=== PATIENT | female | born 1965 | race Caucasian/White ===

== ENCOUNTER 2020-04-04 15:41 | Emergency (ER) | payer OTHER, SELFPAY ==
[2020-04-04 15:54] VITALS: BP 129/68; PULSE 88; RESP 16; TEMP 36.9; O2SAT 98
[2020-04-04] MEDS: TETANUS,DIPHTHERIA,AC PERTUSSIS ADULT (0.5 ML) BOOSTRIX IM (16:25)
--- NOTE | 2020-04-04 17:03 | ED.GENADULT ---
HPI - General Adult General Chief complaint: Wound/Laceration Stated complaint: Laceration on hand Source: patient Mode of arrival: ambulatory Limitations: no limitations History of Present Illness HPI narrative: Patient presents for evaluation of laceration to left hand. She indicates she had a knife that was attempting to open a wrapper just prior to arrival when she cut herself. She was able to get bleeding controlled with application of pressure dressing. She is right-hand dominant. Denies loss of range of motion in the affected hand. Denies paresthesias. Date of last tetanus unknown. She is not diabetic. No additional complaints or concerns. Related Data Home Medications Medication Instructions Recorded Confirmed bupropion HCl mg PO 04/04/20 Allergies Allergy/AdvReac Type Severity Reaction Status Date / Time levofloxacin AdvReac Intermediate Other Verified 10/26/17 17:47 Sulfa (Sulfonamide AdvReac Other Verified 04/04/20 16:34 Antibiotics) Review of Systems Review of Systems: Narrative: CONSTITUTIONAL: Denies fever, chills, or sweats. EYES: Denies visual changes, redness, or discharge. ENT: Denies rhinorrhea, congestion, sore throat, or otalgia. CARDIOVASCULAR: Denies chest pain, palpitations, or edema. RESPIRATORY: Denies cough or dyspnea. GASTROINTESTINAL: Denies abdominal pain, nausea, vomiting, or diarrhea. GENITOURINARY: Denies dysuria or hematuria. SKIN: Denies rash or itching. reports laceration to left hand MUSCULOSKELETAL: Denies back pain, joint pain. Reports pain in left hand between 1st and 2nd digits NEUROLOGIC: Denies headache, numbness, dizziness, or weakness. PSYCHIATRIC: Denies anxiety or depression. [facility] Past Medical History Medical History (Updated 04/04/20 @ 17:53 by CONSUELO Shaver, TOSHIA) No pertinent past medical history Surgical History Surgical History (Updated 04/04/20 @ 17:05 by CONSUELO Shaver, TOSHIA) No pertinent past surgical history Family History Family History Mother No pertinent family history Social History Social History Smoking status: Current every day smoker Additional smoking assessment comments: 1 ppd Alcohol use details: Does not currently consume ETOH Substance use: never Living arrangements: other Additional living arrangements comments: with fiance Occupation/Education: occupation Gender identity (if verbalized by the patient): Female Sexual Orientation (if Verbalized by the Patient): Straight or Heterosexual Exam Narrative: Exam Narrative: GENERAL: Well-appearing, well-nourished, and in no acute distress. HEAD: Normocephalic, atraumatic. EYES: PERRLA and EOMI. ENT: Nares clear, no rhinorrhea or epistaxis. Mucous membranes moist. Oropharynx without tonsillar hypertrophy exudate or other lesions. Bilateral TMs pearly acuna nonbulging NECK: Supple. No adenopathy or masses. No carotid bruits or JVD CHEST: Clear to auscultation. No respiratory distress. No wheezes rales or rhonchi HEART: Regular rate and rhythm. No murmur heard. Normal peripheral pulses. ABDOMEN: Soft, nontender, nondistended, normal active bowel sounds. EXTREMITIES: Normal range of motion. No edema. SKIN: Approximately 1.5 cm linear laceration to left hand between 1st and 2nd digits at thenar space, covered with dry gauze which was removed for examination. Bleeding is controlled. NEURO: No focal deficits. Alert and oriented x3. PSYCH: Normal mood and affect. Course Course Emergency Course: Patient presents with laceration to the thenar space of the left hand. She was updated on her tetanus and laceration was repaired with 2 sutures, patient tolerated well. Pt was instructed to follow up with primary care and return for any signs of infection. Vital Signs Vital signs: Vital Signs Temperature 36.9 C 04/04/20 15:5
== END 2020-04-04 17:55 | disposition home or self-care (01) ==
PROVIDERS: Emergency Provider Nurse Practitioner
DX: S61.412A Laceration without foreign body of left hand, initial encounter (principal); W26.0XXA Contact with knife, initial encounter; Z23 Encounter for immunization; F17.200 Nicotine dependence, unspecified, uncomplicated
CPT/HCPCS: 12001; 90471; 90715; 99212; G0463

== ENCOUNTER 2020-04-13 18:03 | Emergency (ER) | payer OTHER, SELFPAY ==
[2020-04-13 18:10] VITALS: BP 125/65; PULSE 96; RESP 16; TEMP 37.1; O2SAT 98
--- NOTE | 2020-04-13 18:28 | ED.SKABFB ---
HPI - Skin/Abscess/Foreign Bdy General Chief complaint: Skin/Abscess/Foreign Body Stated complaint: stitches removed from left hand Time Seen by Provider: 04/13/20 18:19 Source: patient and RN notes reviewed Mode of arrival: ambulatory Limitations: no limitations History of Present Illness HPI narrative: 54-year-old female presents with concern for suture removal. Reports 2 sutures in her which left hand that she received after sustaining a laceration 9 days ago. Reports a small amount of redness and irritation at the suture site. Denies any other symptoms. MD complaint: laceration Related Data Home Medications Medication Instructions Recorded Confirmed bupropion HCl 150 mg PO DAILY 04/04/20 Allergies Allergy/AdvReac Type Severity Reaction Status Date / Time levofloxacin AdvReac Intermediate Other Verified 04/13/20 18:18 Sulfa (Sulfonamide AdvReac Other Verified 04/13/20 18:18 Antibiotics) Review of Systems Review of Systems: Narrative: CONSTITUTIONAL: Denies malaise, chills, sweats, or fever. SKIN: Reports 2 sutures to the left hand with a small amount of redness. Denies any drainage. Denies any swelling MUSCULOSKELETAL: Denies musculoskeletal pain NEUROLOGIC: Denies numbness, weakness All systems reviewed & are unremarkable except as noted in HPI and below PMFSH Past Medical History Medical History (Updated 04/13/20 @ 18:27 by Jina Live NP) No pertinent past medical history Surgical History Surgical History (System 04/06/20 @ 12:12 by Melissa Mccartney) No pertinent past surgical history Family History Family History Mother No pertinent family history Social History Social History (System 04/06/20 @ 12:12 by Melissa Mccartney) Smoking status: Current every day smoker Additional smoking assessment comments: 1 ppd Substance use: never Additional living arrangements comments: with fiance Gender identity (if verbalized by the patient): Female Comments At time of signature, agree with nursing past medical, surgical, social and family history. There is no relevant family history pertinent to the presenting complaint Exam Narrative: Exam Narrative: GENERAL: Well-appearing, well-nourished, and in no acute distress. HEAD: Normocephalic EYES: PERRLA, conjunctivae clear ENT: Mucous membranes moist. NECK: Supple. CHEST: No respiratory distress. Speaks in full sentences. HEART: Regular rate and rhythm. es. EXTREMITIES: Left hand digits have grossly normal range of motion, no edema, normal strength and sensation. SKIN: Warm, dry, no rash. 2 intact sutures between the first and second digits of the left hand, laceration closed well approximated, with very small amount of surrounding erythema, without induration, edema, drainage. NEURO: Alert and oriented x3. PSYCH: Normal mood and affect Course Course Emergency Course: Patient is aware of diagnosis, understands and agrees to treatment plan. Anticipatory guidance given. Patient agrees to follow-up as directed and is aware of reasons to seek care at the emergency department. Portions of this record may have been created with voice recognition software Vital Signs Vital signs: Vital Signs Temperature 98.8 F 04/13/20 18:10 Pulse Rate 96 04/13/20 18:10 Respiratory Rate 16 04/13/20 18:10 Blood Pressure 125/65 04/13/20 18:10 Pulse Oximetry 98 04/13/20 18:10 Temperature 98.8 F 04/13/20 18:10 Pulse Rate 96 04/13/20 18:10 Respiratory Rate 16 04/13/20 18:10 Blood Pressure 125/65 04/13/20 18:10 Pulse Oximetry 98 04/13/20 18:10 Reviewed. MDM - Skin/Abscess/Foreign Bdy MDM Narrative Medical decision making narrative: Verbal consent was obtained. Wound well approximated, no erythema, induration, or discharge noted. 2 intact completely removed in a sterile fashion. Patient tolerated procedure well, no complications. Patient advised to
== END 2020-04-13 18:30 | disposition home or self-care (01) ==
PROVIDERS: Emergency Provider Nurse Practitioner; PCP Family Medicine
DX: S61.412D Laceration without foreign body of left hand, subsequent encounter (principal); X58.XXXD Exposure to other specified factors, subsequent encounter; F17.200 Nicotine dependence, unspecified, uncomplicated
CPT/HCPCS: 99211; G0463

== ENCOUNTER 2023-05-08 18:04 | Emergency (ER) | payer BC, SELFPAY ==
--- NOTE | 2023-05-08 18:14 | ED.GENADULT ---
HPI - General Adult General Chief complaint: Skin/Abscess/Foreign Body Stated complaint: SKin Sore Right Thumb Time Seen by Provider: 05/08/23 18:14 Source: patient, RN notes reviewed and old records reviewed Mode of arrival: ambulatory Limitations: no limitations History of Present Illness HPI narrative: 57 year female presents to the [facility] complaints a right thumb wound. States that she tried clipping hangnails and to short pain and swelling 2 weeks ago Patient also reports a stuffy nose that started 2 days ago. No treatment prior to arrival Related Data Home Medications Medication Instructions Recorded Confirmed bupropion HCl 150 mg 24 hr tablet, 150 mg PO DAILY 04/04/20 extended release Allergies Allergy/AdvReac Type Severity Reaction Status Date / Time levofloxacin AdvReac Intermediate Other Verified 04/13/20 18:18 Sulfa (Sulfonamide AdvReac Other Verified 04/13/20 18:18 Antibiotics) Review of Systems Review of Systems: All systems reviewed & are unremarkable except as noted in HPI and below Constitutional: Constitutional: Reports no additional constitutional complaints Eyes: Eyes: Reports no additional eye complaints ENT: Reports as per HPI Cardiovascular: Cardiovascular: Reports no additional cardiovascular complaints, Denies chest pain and Denies dyspnea Respiratory: Respiratory: Reports no additional respiratory complaints, Denies chest congestion, Denies cough and Denies dyspnea Gastrointestinal: Gastrointestinal: Reports no additional gastrointestinal complaints, Denies abdominal pain, Denies nausea and Denies vomiting Musculoskeletal: Musculoskeletal: Reports no additional musculoskeletal complaints Integumentary/Breasts: Skin/Breast: Reports as per HPI Neurologic: Reports system reviewed and no additional complaints, except as documented Psychiatric: Psychiatric: Reports no additional psychiatric complaints Allergic/Immunologic: Allergic/Immunologic: Reports no additional allergic/immunologic complaints [facility] Past Medical History Medical History No pertinent past medical history Surgical History Surgical History No pertinent past surgical history Family History Family History Mother No pertinent family history Social History Social History Smoking status: Current every day smoker Additional smoking assessment comments: 1 ppd Alcohol use details: Does not currently consume ETOH Substance use: never Living arrangements: other Additional living arrangements comments: with fiance Occupation/Education: occupation Gender identity (if verbalized by the patient): Female Sexual Orientation (if Verbalized by the Patient): Straight or Heterosexual Comments At the time of my signature, I reviewed and agree with the nursing past medical, surgical, social, and family history. There is no relevant family history pertinent to the patient complaint. Exam Const: General: cooperative, healthy appearing, comfortable, no acute distress, well developed, alert and well nourished Nutritional Appearance: well nourished Orientation/consciousness: patient oriented x3 Limitations: no limitations HENMT: Head: normal to inspection Ears: hearing grossly normal bilaterally and external ears normal Face/Nose/Sinus: Normal external nose present, Normal nares present, Normal nasal mucous membranes and turbinates present, normal facial exam and face symmetric Face and sinus: normal facial exam and face symmetric Mouth: Yes Normal oral and palatal mucosa present, Yes lip normal and Yes moist mucous membranes Eyes: General: appearance normal, both eyes and all related structures Alignment and Position: alignment normal Periorbital: periorbital findings normal Pup
[2023-05-08 18:18] VITALS: BP 135/71; PULSE 88; RESP 16; TEMP 36.8; O2SAT 95
== END 2023-05-08 19:15 | disposition home or self-care (01) ==
PROVIDERS: Emergency Provider Nurse Practitioner
DX: L03.011 Cellulitis of right finger (principal); F17.200 Nicotine dependence, unspecified, uncomplicated
CPT/HCPCS: 10060; 87070; 87075; 87205; 99203; G0463

== ENCOUNTER 2023-11-26 17:49 | Emergency (ER) | payer BC, SELFPAY ==
[2023-11-26 18:01] VITALS: BP 147/84; PULSE 85; RESP 20; TEMP 37.2; O2SAT 98
--- NOTE | 2023-11-26 18:02 | ED.SKABFB ---
HPI - Skin/Abscess/Foreign Bdy General Chief complaint: Skin/Abscess/Foreign Body Stated complaint: poison letty or oak all over Source: patient Mode of arrival: ambulatory Limitations: no limitations History of Present Illness HPI narrative: 58-year-old female presented for complaint of spreading rash scattered over bilateral thighs legs and feet, with a few lesions on the trunk. Also reports 1 lesion in her nose and near the right eye. Denies pain or itching. Has been applying Neosporin and calamine. Denies lip, tongue, or throat swelling, shortness of breath or wheezing. Denies changes to soap, detergent, lotion, or any other exposures. No one else in the house or any contacts with similar symptoms. Related Data Home Medications Medication Instructions Recorded Confirmed bupropion HCl 150 mg 24 hr tablet, 150 mg PO DAILY 04/04/20 11/26/23 extended release Allergies Allergy/AdvReac Type Severity Reaction Status Date / Time levofloxacin AdvReac Intermediate Other Verified 04/13/20 18:18 Sulfa (Sulfonamide AdvReac Other Verified 04/13/20 18:18 Antibiotics) Review of Systems Review of Systems: CONSTITUTIONAL: Denies body aches, fever, chills, or sweats. EYES: Denies visual changes, redness, or discharge. ENT: Denies rhinorrhea, congestion CARDIOVASCULAR: Denies chest pain, palpitations, or edema. RESPIRATORY: Denies cough or dyspnea. GASTROINTESTINAL: Denies abdominal pain, nausea, vomiting, or diarrhea. SKIN: reports rash MUSCULOSKELETAL: Denies back pain, joint pain, or myalgia. NEUROLOGIC: Denies headache, numbness, tingling, or weakness. REPLACED BY [facility] Past Medical History Medical History No pertinent past medical history Surgical History Surgical History No pertinent past surgical history Family History Family History Mother No pertinent family history Social History Social History Smoking status: Current every day smoker Additional smoking assessment comments: 1 ppd Alcohol use details: Does not currently consume ETOH Substance use: never Living arrangements: other Additional living arrangements comments: with fiance Occupation/Education: occupation Gender identity (if verbalized by the patient): Female Sexual Orientation (if Verbalized by the Patient): Straight or Heterosexual Comments At time of signature, I have reviewed and agree with nursing past medical, surgical, social and family history unless otherwise noted. Please see nursing chart for further information. There is no relevant family history pertinent to the presenting complaint Exam Narrative: GENERAL: Well-appearing EYES: conjunctivae clear, and EOMI. ENT: Mucous membranes moist. Oropharynx without edema, erythema or lesions. Unable to visualize the reported lesion to right nare. CHEST: Clear to auscultation. HEART: Regular rate and rhythm. SKIN: Warm, dry. Scattered erythematous papules to feet and legs, few to torso, some flat; lesions are nontender, no drainage. NEURO: Alert and oriented x3. Course Course Emergency Course: Patient is aware of diagnosis, understands and agrees to treatment plan. Anticipatory guidance given. Patient agrees to follow-up as directed and is aware of reasons to seek care at the emergency department. Portions of this record may have been created with voice recognition software Level of Care: Express Care Visit Vital Signs Vital signs: Vital Signs Temperature 98.9 F 11/26/23 18:01 Pulse Rate 85 11/26/23 18:01 Respiratory Rate 20 11/26/23 18:01 Blood Pressure 147/84 H 11/26/23 18:01 Pulse Oximetry 98 11/26/23 18:01 Oxygen Delivery Room Air 11/26/23 18:01 Temperature 98.9 F 11/26/23 18:01 Pulse Rate 85 06/2
[2023-11-26 18:04] VITALS: BP 147/84; PULSE 85; RESP 20; TEMP 37.2; O2SAT 98
== END 2023-11-26 18:33 | disposition home or self-care (01) ==
PROVIDERS: Emergency Provider Nurse Practitioner Family
DX: L25.9 Unspecified contact dermatitis, unspecified cause (principal); F17.200 Nicotine dependence, unspecified, uncomplicated
CPT/HCPCS: 99213; G0463